=== PATIENT | female | born 1980 | race Caucasian/White ===

== ENCOUNTER → 2024-08-19 09:06 | Outpatient (REF) | payer BC, SELFPAY | LOC: HWRAD 09:06 | PROVIDERS: ATTENDING PHYSICIAN Internal Medicine Gastroenterology; FAMILY PHYSICIAN Family Medicine | DX: K70.0 Alcoholic fatty liver (principal) | CPT/HCPCS: 76700 ==

== ENCOUNTER → 2025-04-14 06:53 | Outpatient (REF) | payer BC, SELFPAY | LOC: HWRAD 06:53 | PROVIDERS: ATTENDING PHYSICIAN Internal Medicine Gastroenterology; FAMILY PHYSICIAN Physician Assistant Medical | DX: K70.0 Alcoholic fatty liver (principal) | CPT/HCPCS: 76700 ==